=== PATIENT | male | born 1970 | race Caucasian/White ===

== ENCOUNTER 2021-06-24 00:15 | Emergency (ER) | payer BC ==
[~2021-06-24] VITALS: Ht 172.7 cm; Wt 79.4 kg
--- NOTE | 2021-06-24 00:23 | NUR ---
PT AMBULATED TO ER C/O BILATERAL EYE BURNING STARTED 45 MINS [employer].
--- NOTE | 2021-06-24 00:24 | NUR ---
DR. GAMEZ AT BEDSIDE, MSE IN PROGRESS.
[2021-06-24] MEDS ORDERED: FLUORESCEIN SODIUM 1 MG STRIP OP ONE (00:30)
[2021-06-24] MEDS ORDERED: TETRACAINE HCL 0.5% OPHT DROP 2 ML BOTTLE OP ONE (00:30)
[2021-06-24] MEDS ORDERED: FLUORESCEIN SODIUM 1 MG STRIP ONE (00:37)
[2021-06-24] MEDS ORDERED: TETRACAINE HCL 0.5% OPHT DROP 2 ML BOTTLE ONE (00:41)
[2021-06-24] MEDS ORDERED: CIPR5DRO EACHEYE (00:56)
[2021-06-24] MEDS ORDERED: TDAP DIPH,PERTUSS,TET VAC/PF 0.5 ML DISP.SYRIN IM ONE ×2 (00:56→01:00)
[2021-06-24] MEDS ORDERED: OXYC-128 PO (00:56)
[2021-06-24] MEDS ORDERED: OXYCODONE/APAP 5-325 MG TABLET ONE (00:56)
[2021-06-24] MEDS ORDERED: OXYCODONE/APAP 5-325 MG TABLET PO ONE (01:00)
--- NOTE | 2021-06-24 01:07 | NUR ---
Patient discharged to home in stable condition. Denies any pain/discomfort. Written and verbal after care instructions given. Patient verbalizes understanding of instructions. Stressed follow up or return to ER for worsening s/s. Steady gait, accompanied by .
[2021-06-24 01:10] VITALS: BP 127/73
== END 2021-06-24 01:10 | disposition home or self-care (01) ==
LOC: ER 00:22
DX: S05.01XA Injury of conjunctiva and corneal abrasion without foreign body, right eye, initial encounter (principal); X58.XXXA Exposure to other specified factors, initial encounter; Y92.89 Other specified places as the place of occurrence of the external cause; Z88.0 Allergy status to penicillin
CPT/HCPCS: 90715; A4663